=== PATIENT | male | born 1970 | race Native Hawaiian/Other Pacific Islander ===

== ENCOUNTER 2016-09-05 10:43 | Observation (INO) | payer BC ==
[~2016-09-05] VITALS: Ht 180.3 cm; Wt 92.5 kg
[2016-09-05 14:03] VITALS: BP 139/96; TEMP 98.2; Ht 180.3 cm; Wt 92.5 kg
[2016-09-05 15:19] LABS: PLATELET COUNT 388 K/uL (142-355)
[2016-09-05 15:32] LABS: POTASSIUM 3.7 mmol/L (3.6-5.2); SODIUM 136 mmol/L (136-145)
[2016-09-05 16:00] VITALS: BP 164/64; TEMP 97.4
[2016-09-05 20:00] VITALS: BP 107/69; TEMP 98
[2016-09-06] VITALS: BP 127/80; TEMP 97.1
[2016-09-06 05:29] VITALS: BP 130/80; TEMP 98.6
[2016-09-06 05:53] LABS: PLATELET COUNT 357 K/uL (142-355)
[2016-09-06 06:02] LABS: POTASSIUM 3.9 mmol/L (3.6-5.2); SODIUM 138 mmol/L (136-145)
[2016-09-06 08:05] VITALS: BP 118/63; TEMP 97.9
== END 2016-09-06 11:22 | disposition home or self-care (01) ==
LOC: MED/SURG 10:43
PROVIDERS: Student in an Organized Health Care Education/Training Program; ADMIT Nurse Practitioner
DX: K52.89 Other specified noninfective gastroenteritis and colitis (principal); R11.2 Nausea with vomiting, unspecified; A08.8 Other specified intestinal infections; E86.0 Dehydration; R53.1 Weakness
CPT/HCPCS: 80053; 81000; 82150; 83690; 85027; 86318; 87040; 87045; 87493; 87798; 87804; 87899; 96360; 96361; 96374; 99220; G0378; G0379

== ENCOUNTER 2017-02-11 07:40 | Day surgery (SDC) | payer BC ==
[~2017-02-11] VITALS: Ht 30.5 cm; Wt 0.5 kg
== END 2017-02-11 10:06 | disposition home or self-care (01) ==
LOC: OR 07:40
PROC: 0DB68ZZ Excision of Stomach, Via Natural or Artificial Opening Endoscopic (ICD-10-PCS; principal; 2017-02-11)
PROC: 0DB38ZZ Excision of Lower Esophagus, Via Natural or Artificial Opening Endoscopic (ICD-10-PCS; 2017-02-11)
DX: K29.70 Gastritis, unspecified, without bleeding (principal); K20.9 Esophagitis, unspecified; R63.4 Abnormal weight loss; R10.9 Unspecified abdominal pain; R13.10 Dysphagia, unspecified
CPT/HCPCS: J2001; J2250; J2704; J3010